=== PATIENT | male | born 1960 | race Caucasian/White ===

== ENCOUNTER → 2017-12-11 | Outpatient (CLI) | payer BC ==
[~2017-12-11] MED LIST: LISHYD1012 PO; MULVITMIND PO; PROM25 PO
== END | disposition home or self-care (01) ==
LOC: LAB EV 11:21
DX: R33.9 Retention of urine, unspecified (principal)
CPT/HCPCS: 87086

== ENCOUNTER → 2018-03-14 | Outpatient (CLI) | payer BC | LOC: LAB SHORT 14:30 → LAB 14:30 | DX: R82.90 Unspecified abnormal findings in urine (principal) | CPT/HCPCS: 87086 ==

== ENCOUNTER 2022-09-24 15:37 | Inpatient (IN) | payer BC ==
[~2022-09-24] VITALS: Ht 193 cm; Wt 103.1 kg
[2022-09-24 16:13] LABS: BASOPHILS ABSOLUTE AUTO 0.04 K/mm3 (0.00-0.23); BASOPHILS PERCENT AUTO 0 % (0-2); EOSINOPHILS PERCENT AUTO 0 % (0-6); Hematocrit 43.1 % (37.0-53.0); Hemoglobin 14.4 g/dL (13.5-17.5); IMMATURE GRAN ABSOLUTE AUTO 0.13 K/mm3 (0.00-0.10); IMMATURE GRAN PERCENT AUTO 1 % (0-1); LYMPHOCYTES PERCENT AUTO 6 % (21-46); MONOCYTES ABSOLUTE AUTO 1.76 K/mm3 (0.16-1.47); MONOCYTES PERCENT AUTO 8 % (4-13); Mean Corpuscular HGB 28.6 pg (26.0-34.0); Mean Corpuscular HGB Conc 33.4 g/dL (31.5-36.5); Mean Corpuscular Volume 86 fL (80-100); Mean Platelet Volume 9.7 fL (9.1-12.4); NEUTROPHILS ABSOLUTE AUTO 19.69 K/mm3 (1.96-9.15); NEUTROPHILS PERCENT AUTO 86 % (41-73); Platelet Count 371 K/mm3 (150-400); RDW Coefficient Variation 12.9 % (11.7-14.2); RDW Standard Deviation 40.6 fL (35.1-46.3); Red Blood Cell Count 5.03 M/mm3 (4.30-5.90); White Blood Cell Count 23.02 K/mm3 (4.00-11.30)
[2022-09-24 16:40] LABS: Albumin, Blood 3.1 g/dL (3.4-5.0); Albumin/Globulin Ratio 0.6 (0.8-1.8); Bun/Creatinine Ratio 19.8 (12.0-20.0); Calcium, Blood 8.8 mg/dL (8.5-10.1); Creatinine, Blood 1.21 mg/dL (0.60-1.20); Globulin, Blood 4.9 g/dL (2.2-4.0); Potassium, Blood 3.8 mmol/L (3.5-5.5)
[2022-09-24] MEDS ORDERED: ATOR10 PO (19:35)
[2022-09-24] MEDS ORDERED: LOSA50 PO (19:36)
--- NOTE | 2022-09-25 04:52 | NUR ---
SUMMARY PT ARRIVED TO FLOOR IN NO DISTRESS. PT HAS BEEN VOIDING AND HAVING PERIODS OF DIARRHEA. PT DENIES ABD PAIN OR N/V. PT HAS SLEPT COMFORTABLY FOR THE SHIFT. CALL LIGHT IN REACH.
[2022-09-25 04:57] LABS: BASOPHILS ABSOLUTE AUTO 0.04 K/mm3 (0.00-0.23); BASOPHILS PERCENT AUTO 0 % (0-2); EOSINOPHILS ABSOLUTE AUTO 0.04 K/mm3 (0.00-0.68); EOSINOPHILS PERCENT AUTO 0 % (0-6); Hematocrit 36.1 % (37.0-53.0); IMMATURE GRAN ABSOLUTE AUTO 0.09 K/mm3 (0.00-0.10); IMMATURE GRAN PERCENT AUTO 1 % (0-1); LYMPHOCYTES ABSOLUTE AUTO 0.87 K/mm3 (0.84-5.20); LYMPHOCYTES PERCENT AUTO 5 % (21-46); MONOCYTES ABSOLUTE AUTO 1.53 K/mm3 (0.16-1.47); MONOCYTES PERCENT AUTO 9 % (4-13); Mean Corpuscular HGB 28.3 pg (26.0-34.0); Mean Corpuscular HGB Conc 33.2 g/dL (31.5-36.5); Mean Corpuscular Volume 85 fL (80-100); Mean Platelet Volume 9.8 fL (9.1-12.4); NEUTROPHILS ABSOLUTE AUTO 14.75 K/mm3 (1.96-9.15); NEUTROPHILS PERCENT AUTO 85 % (41-73); Platelet Count 312 K/mm3 (150-400); RDW Coefficient Variation 12.9 % (11.7-14.2); RDW Standard Deviation 40.1 fL (35.1-46.3); Red Blood Cell Count 4.24 M/mm3 (4.30-5.90); White Blood Cell Count 17.32 K/mm3 (4.00-11.30)
[2022-09-25 05:22] LABS: Albumin, Blood 2.6 g/dL (3.4-5.0); Anion Gap 7 mmol/L (6-16); Blood Urea Nitrogen 24 mg/dL (8-24); Bun/Creatinine Ratio 19.8 (12.0-20.0); CO2, Blood 25 mmol/L (21-32); Calcium, Blood 8.3 mg/dL (8.5-10.1); Chloride, Blood 107 mmol/L (98-108); Creatinine, Blood 1.21 mg/dL (0.60-1.20); Glomerular Filtration Rate 67 (60-); Glucose, Blood 128 mg/dL (70-99); Magnesium, Blood 2.4 mg/dL (1.6-2.4); Phosphorus, Blood 3.1 mg/dL (2.5-4.9); Potassium, Blood 3.4 mmol/L (3.5-5.5); Sodium, Blood 139 mmol/L (136-145)
--- NOTE | 2022-09-25 08:23 | NUR ---
PATIENT TO DAY SURGERY WITH X2 DAY SURGERY RN'S.
--- NOTE | 2022-09-25 08:42 | NUR ---
PT BROUGHT FROM FLOOR TO DAY SURGERY FOR PROCEDURE. Patient confirms NPO status and agrees with scheduled surgery. Pre-Op teaching done. Pt verbalizes understanding. PT BELONGINGS IN SURGICAL ROOM FOR SAFEKEEPING.
--- NOTE | 2022-09-25 10:32 | NUR ---
09/25/22 1032 Sara Jose CONVERTED TO OPEN APPY AT 0718
--- NOTE | 2022-09-25 13:06 | NUR ---
PATIENT RETURNED TO ROOM FROM PACU VIA GURNEY, TRANSFERRED TO BED VIA SLIDER SHEET, PATIENT TOELRATED WELL. MINIMAL PAIN REPORTED TO BE TOLERABLE AT THIS TIME. SABINA DRESSING IN PALCE TO MIDLINE INCISION, SMALLA MOUNT OF DRAINAGE PRESENT, GOOD SUCTION REMAINS. FABIEN DRAIN TO RUQ W/ SS OUTPUT CURRENTLY. SIFUENTES IN PLACE DRAINING TO GRAVITY. VSS ON 2L O2 VIA NC. CALL LIGHT IN REACH.
--- NOTE | 2022-09-25 17:45 | NUR ---
SHIFT SUMMARY POD 0 OPEN APPENDECTOMY, MIDLINE INCISION WITH SABINA, DRY & INTACT. SMALL AMOUNT OF DRAINAGE. TOLERTING ICE CHIPS BUT PATIENT REMAINS NPO PER DR HART WITH ONLY ICE CHIPS. SIFUENTES IN PLACE, DRAINING CLEAR YELLOW URINE. MODERATE AMOUNT OF PAIN, MANAGED PER EMAR. CALLS APPROPRIATELY, IN REACH.
--- NOTE | 2022-09-26 05:18 | NUR ---
SHIFT SUMMARY: A&0X4. PODx1 OPEN APPY. MIDLINE SABINA REMAINS IN PLACE, NO CHANGES IN DRAINAGE SINCE BEGINNING OF SHIFT. FABIEN DRAIN REMAINS IN PLACE AND IS DRAINING SMALL AMOUNTS OF SEROSANGUINEOUS FLUID. REMAINS NPO OTHER THAN SMALL AMOUNTS OF ICE CHIPS. PAIN WELL MANAGED T/O THE SHIFT WITH IV MORPHINE. MEDICATED X1. PT RESTING WITH CALL LIGHT IN REACH. WILL GIVE REPORT TO DAY TIME RN.
--- NOTE | 2022-09-26 18:48 | NUR ---
SHIFT SUMMARY PT A&OX4, VSS/RA, NPO/ICE CHIPS, SIFUENTES PATENT & DRAINING YELLOW URINE, AMB SBA FWW IN HALLWAY/UP TO CHAIR T/O SHIFT. I.S. [facility]/ENC/DEMO. PAIN MANAGED WITH MORPHINE 2 MG, GIVEN 2X THIS SHIFT, PT REP PAIN 11/13 CURRENTLY. POD1, MIDLINE SABINA WNL, FABIEN 30 MLS SS OUT, DENIES FLATUS. IVF @ 100 MLS/HR. WILL REPORT TO ONCOMING NOC GHASSAN.
[2022-09-27 04:24] LABS: BASOPHILS ABSOLUTE AUTO 0.03 K/mm3 (0.00-0.23); BASOPHILS PERCENT AUTO 0 % (0-2); EOSINOPHILS PERCENT AUTO 0 % (0-6); Hematocrit 38.6 % (37.0-53.0); Hemoglobin 12.8 g/dL (13.5-17.5); IMMATURE GRAN ABSOLUTE AUTO 0.12 K/mm3 (0.00-0.10); IMMATURE GRAN PERCENT AUTO 1 % (0-1); LYMPHOCYTES ABSOLUTE AUTO 1.08 K/mm3 (0.84-5.20); LYMPHOCYTES PERCENT AUTO 7 % (21-46); MONOCYTES PERCENT AUTO 9 % (4-13); Mean Corpuscular HGB 28.2 pg (26.0-34.0); Mean Corpuscular HGB Conc 33.2 g/dL (31.5-36.5); Mean Corpuscular Volume 85 fL (80-100); Mean Platelet Volume 9.5 fL (9.1-12.4); NEUTROPHILS ABSOLUTE AUTO 13.47 K/mm3 (1.96-9.15); NEUTROPHILS PERCENT AUTO 83 % (41-73); Platelet Count 439 K/mm3 (150-400); RDW Coefficient Variation 13.2 % (11.7-14.2); RDW Standard Deviation 40.9 fL (35.1-46.3); Red Blood Cell Count 4.54 M/mm3 (4.30-5.90)
[2022-09-27 04:44] LABS: Albumin, Blood 2.3 g/dL (3.4-5.0); Albumin/Globulin Ratio 0.5 (0.8-1.8); Bilirubin, Total 0.5 mg/dL (0.1-1.0); Bun/Creatinine Ratio 24.9 (12.0-20.0); Calcium, Blood 8.4 mg/dL (8.5-10.1); Creatinine, Blood 0.97 mg/dL (0.60-1.20); Globulin, Blood 4.4 g/dL (2.2-4.0); Potassium, Blood 3.6 mmol/L (3.5-5.5); Total Protein, Blood 6.7 g/dL (6.4-8.2)
--- NOTE | 2022-09-27 07:33 | NUR ---
HAS RESTED OFF AND ON THIS SHIFT. AAO X4, BURNETTE, FOLLOWS ALL COMMANDS. FABIEN DRAIN IN PLACE. MIDLINE SABINA IN PLACE AND C/D/I. PAIN MANANGED, DENIES FURTHER NEEDS OR WANTS AT THIS TIME. IVF INFUSING PER MD ORDERS. SAFETY MEASURES IN PLACE. WILL GIVE HAND OFF TO ONCOMING SHIFT USING SBAR.
--- NOTE | 2022-09-27 16:59 | NUR ---
SHIFT SUMMARY POD 2 LAP CONVERTED TO OPEN APPY. PT HAS BEEN UP AND AMBULATING FREQUENTLY IN THE HALLS. NO WEAKNESS NOTED WITH AMBULATION, HE HAS BEEN PASSING FLATUS T/O THE SHIFT, TWO SMALL LOOSE BOWEL MOVEMENTS. CONTINUES TO DENY PAIN. HE HAS HAD INTERMITTENT HICCUPS AND BELCHING. ADVANCED TO CLEAR LIQUID BUT IS REQUESTING TO MAINTAIN ICE CHIPS ONLY AT THIS TIME. PT HAS VOIDED MULTIPLE TIMES SINCE SIFUENTES REMOVED, POST VOID RESIDUAL OF 99 WITH BLADDER SCAN.
--- NOTE | 2022-09-27 21:49 | NUR ---
CARE ASSUMPTION: PATIENT IN RECLINER, DENIES N/V/D/SOB OR CHEST PAIN. ENDORSES GAS AND HICCUPS. FLUIDS RUNNING PER EMAR. PATIENT ADVANCED TO CLEAR DIET BUT ONLY REQUESTS ICE CHIPS. MEDICATED PER EMAR.
--- NOTE | 2022-09-28 06:18 | NUR ---
SHIFT SUMMARY: PATIENT DENIES SOB/PAIN/CHEST DISCOMFORT. FBAIEN DRAINING SEROUS FLUID. MEDICATED PER EMAR. DENIES NEEDS AND WAS AWAKE MAJORITY OF NIGHT STATING, "IT'S DIFFICULT TO SLEEP HERE." MEDICATED PER EMAR. PATIENT IN RECLINER WITH CALL LIGHT IN REACH. WILL CONTINUE TO MONITOR UNTIL REPORT TO DAY RN.
--- NOTE | 2022-09-28 07:31 | NUR ---
upon assessment this morning patient reports that he has been passing gas and continuing to void during night, he also reported that during his last void he was passing gas while peeing. this rn asked for clarification that gas was coming out of his penis which he confirmed. gave a clean urinal and asked patient to save his next void. notifed dr. artis, orders to continue with clear liquid diet and observe next void for feculant material in urine. pt denies any pain or discomfort with voiding.
--- NOTE | 2022-09-28 14:46 | NUR ---
PT WITH XL EMESIS BILE IN COLOR ACROSS FLOOR OF PT ROOM. PT REPORTS "FEELING BETTER" FOLLOWING THIS. PT SALINE LOCKED AND BLENDING KETTLE TENDER ASSISTING PT WITH SHOWER AT THIS TIME. PRIMARY RN NOTIFIED
--- NOTE | 2022-09-28 16:22 | NUR ---
SHIFT SUMMARY POD 3 LAP APPY CONVERTED TO OPEN PT REMAINS PASSING FLATUS, LARGE EMESIS THIS EVENING, PT REPORTS HE WAS ATTEMPTING TO SCRATCH THE ROOF OF HIS MOUTH AGAIN CAUSING THE EMESIS. HE DENIES DISCOMFORT SINCE EMESIS, HE REMAINS NPO. PPN INFUSING PER EMAR, PT EXCITED TO START. ABD REMAINS DISTENDED, DECREASED AFTER EMESIS. DRESSING REMAINS UNCHANGED.
[2022-09-28 20:11] LABS: Source, Urine Clean Catch
[2022-09-28 20:19] LABS: Bilirubin, Urine Neg (Neg); Blood, Urine Neg (Neg); Color, Urine Yellow (P-Yellow); Glucose Qualitative, Urine Neg (Neg); Ketones, Urine Neg (Neg); Leukocyte Esterase, Urine Neg (Neg); Nitrite, Urine Neg (Neg); Protein, Urine 2+ (Neg); Specific Gravity, Urine 1.015 (1.003-1.022); Urobilinogen, Urine NORM (Normal)
[2022-09-28 20:28] LABS: Appearance, Urine Clear (Clear)
[2022-09-28 20:32] LABS: Hyaline Casts 0-2 /lpf (0-2)
[2022-09-28 20:33] LABS: Uric Acid Crystals Mod /hpf
[2022-09-28 20:34] LABS: Amorphous Light (0-Heavy); Bacteria Mod /hpf; Red Blood Cells, Urine 0-2 /hpf (0-2); Squamous Epithelial Cells Rare /hpf (Few)
--- NOTE | 2022-09-29 05:35 | NUR ---
SHIFT SUMMARY A/O X4- IND IN THE ROOM. POD4- LAP TO OPEN APPY- MIDLINE SABINA INTACT, DRIED DRAINAGE UNCHANGED. FABIEN DRAIN TO RLQ- MINIMAL OUTPUT THROUGHOUT SHIFT. PPN RUNNING THROUGHOUT SHIFT- MAINTAINED AT 50ML PER HOUR DUE TO PT REPORTING NAUSEA AT HIGHER MLS PER HR. NAUSEA TREATED W/ IV ZOFRAN PER EMAR, NO EMESIS THROUGHOUT SHIFT. ABDOMEN MODERATELY DISTENDED. VOIDING WELL AND REMAINED NPO THROUGHOUT SHIFT. NO FURTHER REPORT OF PASSING FLATUS OR BOWEL MOVEMENTS THROUGHOUT SHIFT. NO REPORT OF PAIN. WILL CONTINUE TO MONITOR AND REPORT TO ONCOMING RN.
[2022-09-29 06:09] LABS: Hemoglobin 12.8 g/dL (13.5-17.5); Mean Corpuscular HGB 28.3 pg (26.0-34.0); Mean Corpuscular HGB Conc 32.8 g/dL (31.5-36.5); Mean Corpuscular Volume 86 fL (80-100); Mean Platelet Volume 9.3 fL (9.1-12.4); Platelet Count 518 K/mm3 (150-400); RDW Coefficient Variation 13.5 % (11.7-14.2); RDW Standard Deviation 42.9 fL (35.1-46.3); Red Blood Cell Count 4.53 M/mm3 (4.30-5.90); White Blood Cell Count 15.54 K/mm3 (4.00-11.30)
[2022-09-29 06:42] LABS: Magnesium, Blood 2.5 mg/dL (1.6-2.4)
[2022-09-29 07:02] LABS: Alanine Aminotransfer (ALT/SGP 46 U/L (12-78); Albumin, Blood 2.4 g/dL (3.4-5.0); Albumin/Globulin Ratio 0.6 (0.8-1.8); Alk Phos 65 U/L (50-136); Anion Gap 6 mmol/L (6-16); Aspartate Aminotrans (AST/SGOT 36 U/L (12-37); Bilirubin, Total 0.5 mg/dL (0.1-1.0); Blood Urea Nitrogen 25 mg/dL (8-24); Bun/Creatinine Ratio 27.8 (12.0-20.0); CO2, Blood 27 mmol/L (21-32); Calcium, Blood 8.2 mg/dL (8.5-10.1); Chloride, Blood 114 mmol/L (98-108); Glomerular Filtration Rate 95 (60-); Glucose, Blood 155 mg/dL (70-99); Phosphorus, Blood 4.2 mg/dL (2.5-4.9); Potassium, Blood 3.4 mmol/L (3.5-5.5); Sodium, Blood 147 mmol/L (136-145); Total Protein, Blood 6.4 g/dL (6.4-8.2); Triglycerides 133 mg/dL (30-160)
--- NOTE | 2022-09-29 19:12 | NUR ---
SHIFT SUMMARY WHILE PT HAS HAD LINGERING NAUSEA, REPORTS FEELING IMPROVED. HAS DECLINED TAKING ANY ANTIEMETICS. NO EMESIS. NPO EXCEPT SIPS OF WATER w/ MEDS. HAVING GREEN BM's. UP IN CHAIR & AMBULATES TO BATHROOM T/O SHIFT.
--- NOTE | 2022-09-30 04:34 | NUR ---
POD5 OPEN APPY. SABINA DRESSING REMAINS COMPRESSED, DRIED EXUDATE MARKED ON THE DRESSING. FABIEN IN RLQ, DRAINING SS FLUID. PT HAS REMAINED NPO T/O THE NIGHT, ON PPN @55/HR. PT HAD MULTIPLE BILLIOUS BM'S T/O THE NIGHT, VOIDING W/O DIFFICULTY . PT REPORTS NO N/V T/O THE NIGHT. VSS. PT REMAINED INDEPENDENT T/O THE NIGHT. SLEPT ON AND OFF. PLAN FOR PT TO POSSIBLY ADVANCE DIET TODAY, CONTINUE ABX, AND MONITOR BOWEL FUNCTION. THE PATIENT IS CURRENTLY RESTING IN RECLINER, IN NO DISTRESS, CALL LIGHT IN REACH.
[2022-09-30 04:45] LABS: Hematocrit 39.8 % (37.0-53.0); Hemoglobin 12.8 g/dL (13.5-17.5); Mean Corpuscular HGB 28.2 pg (26.0-34.0); Mean Corpuscular HGB Conc 32.2 g/dL (31.5-36.5); Mean Corpuscular Volume 88 fL (80-100); Mean Platelet Volume 9.4 fL (9.1-12.4); Platelet Count 503 K/mm3 (150-400); RDW Coefficient Variation 13.5 % (11.7-14.2); RDW Standard Deviation 43.2 fL (35.1-46.3); Red Blood Cell Count 4.54 M/mm3 (4.30-5.90); White Blood Cell Count 13.77 K/mm3 (4.00-11.30)
[2022-09-30 05:10] LABS: Albumin, Blood 2.4 g/dL (3.4-5.0); Albumin/Globulin Ratio 0.6 (0.8-1.8); Bilirubin, Total 0.5 mg/dL (0.1-1.0); Bun/Creatinine Ratio 24.3 (12.0-20.0); Calcium, Blood 8.3 mg/dL (8.5-10.1); Creatinine, Blood 0.95 mg/dL (0.60-1.20); Globulin, Blood 4.1 g/dL (2.2-4.0); Magnesium, Blood 2.8 mg/dL (1.6-2.4); Phosphorus, Blood 3.3 mg/dL (2.5-4.9); Potassium, Blood 3.8 mmol/L (3.5-5.5); Total Protein, Blood 6.5 g/dL (6.4-8.2)
--- NOTE | 2022-09-30 18:33 | NUR ---
SHIFT SUMMARY PT A&OX4, VSS/RA, NINOSKA PO FLD, VOIDING WELL, AMB IND IN ROOM/BRP/HALLWAY, UP TO CHAIR T/O DAY, I.S. & TCDB T/O SHIFT, DENIES PAIN. POD5, MIDLINE SABINA WNL, FABIEN 40 MLS SSD. WILL REPORT TO ONCOMING NOC RN.
--- NOTE | 2022-10-01 04:49 | NUR ---
SHIFT SUMMARY: A&0X4. PT IND IN ROOM, TO BR, AND TO WALK IN HALLWAY. C/O NO PAIN T/O THE SHIFT. MIDLINE SABINA REMAINS IN PLACE WITH OLD DRIED BLOOD. NO CHANGES OBSERVED. FABIEN PRODUCING SMALL AMOUNT OF SEROSAN DRAINAGE. TOLERATING FULL LIQUID DIET, DRINKING PO FLUIDS. C/O LOOSE BM DURING THE DAY. REPORTS PASSING GAS T/O THE NIGHT BUT NO BM AT THIS TIME. RECEIVING IV ABX. VSS. RESTING WITH CALL LIGHT IN REACH. WILL GIVE REPORT TO DAY TIME RN.
[2022-10-01 05:21] LABS: Hemoglobin 12.7 g/dL (13.5-17.5); Mean Corpuscular HGB 28.2 pg (26.0-34.0); Mean Corpuscular HGB Conc 32.6 g/dL (31.5-36.5); Mean Corpuscular Volume 87 fL (80-100); Mean Platelet Volume 9.4 fL (9.1-12.4); Platelet Count 493 K/mm3 (150-400); RDW Coefficient Variation 13.4 % (11.7-14.2); RDW Standard Deviation 42.4 fL (35.1-46.3); Red Blood Cell Count 4.51 M/mm3 (4.30-5.90); White Blood Cell Count 14.32 K/mm3 (4.00-11.30)
[2022-10-01 05:50] LABS: Albumin, Blood 2.4 g/dL (3.4-5.0); Albumin/Globulin Ratio 0.6 (0.8-1.8); Bilirubin, Total 0.7 mg/dL (0.1-1.0); Calcium, Blood 8.2 mg/dL (8.5-10.1); Globulin, Blood 3.8 g/dL (2.2-4.0); Magnesium, Blood 2.4 mg/dL (1.6-2.4); Phosphorus, Blood 2.9 mg/dL (2.5-4.9); Potassium, Blood 3.6 mmol/L (3.5-5.5); Total Protein, Blood 6.2 g/dL (6.4-8.2)
[2022-10-01] MEDS ORDERED: ACET500 PO (15:08)
[2022-10-01] MEDS ORDERED: AMOCLA875 PO (15:08)
[2022-10-01] MEDS ORDERED: PANT40 PO (15:10)
--- NOTE | 2022-10-01 15:46 | NUR ---
DISCHARGE SUMMARY PT A&OX4, VSS/RA, NINOSKA PO LOW FIBER DIET, VOIDING WELL/2 BMS TODAY, AMB INDEPENDENTLY IN ROOM/UP TO CHAIR, TYLENOL MANAGES PAIN, IVS DC'D. DC INS PROVIDED. PT REP UNDERSTANDING THOSE INSTRUCTIONS INCLUDING HOW TO EMPTY FABIEN DRAIN AND RECORD RESULTS TWICE DAILY AND TAKE RECORD TO FU SURGEON APPT 1 WK, FABIEN DRESSING CHANGE PRN, MEDIPORE OVER [place] DAILY DRESSING CHANGE, OK TO SHOWER, AUGMENTIN AND PROTONIX AT [facility]. LEFT FLOOR VIA WC TO GO HOME WITH MOM AND SISTER WITH ALL PERSONAL POSSESSIONS INCLUDING DC PACKET AND DRESSING CHANGES FOR 1 WK.
== END 2022-10-01 15:39 | disposition home or self-care (01) | DRG 853 ==
LOC: ER 15:37 → SURS 18:11
PROVIDERS: Internal Medicine; Physician Assistant; Student in an Organized Health Care Education/Training Program; Surgery; ADMIT Internal Medicine
PROC: 3E03329 Introduction of Other Anti-infective into Peripheral Vein, Percutaneous Approach (ICD-10-PCS; 2022-09-24)
PROC: 0WJG4ZZ Inspection of Peritoneal Cavity, Percutaneous Endoscopic Approach (ICD-10-PCS; 2022-09-25)
PROC: 0DNE0ZZ Release Large Intestine, Open Approach (ICD-10-PCS; 2022-09-25)
PROC: 0DNW0ZZ Release Peritoneum, Open Approach (ICD-10-PCS; 2022-09-25)
PROC: 0W9G00Z Drainage of Peritoneal Cavity with Drainage Device, Open Approach (ICD-10-PCS; 2022-09-25)
PROC: 0DTJ0ZZ Resection of Appendix, Open Approach (ICD-10-PCS; principal; 2022-09-25 09:30)
PROC: 0DNU0ZZ Release Omentum, Open Approach (ICD-10-PCS; 2022-09-25 09:30)
DX: A41.9 Sepsis, unspecified organism (principal); K35.33 Acute appendicitis with perforation, localized peritonitis, and gangrene, with abscess; E87.0 Hyperosmolality and hypernatremia; K66.0 Peritoneal adhesions (postprocedural) (postinfection); I10 Essential (primary) hypertension; E78.00 Pure hypercholesterolemia, unspecified; F17.210 Nicotine dependence, cigarettes, uncomplicated; E87.6 Hypokalemia; Z98.890 Other specified postprocedural states; Z79.02 Long term (current) use of antithrombotics/antiplatelets; Z79.899 Other long term (current) drug therapy; Z85.828 Personal history of other malignant neoplasm of skin; Z53.31 Laparoscopic surgical procedure converted to open procedure
CPT/HCPCS: 36415; 74177; 80053; 80069; 81001; 82947; 83605; 83690; 83735; 84100; 84478; 85025; 85027; 87086; 88304; 96365-59; 99285-25; A9270; C9113; J1100; J1650; J2270; J2405; J2543; J2704; J2795; J3010; J3411; J3480; J7030; J7120; Q9967

== ENCOUNTER 2023-04-08 11:39 | Day surgery (SDC) | payer OTHER ==
[~2023-04-08] VITALS: Ht 193 cm; Wt 105.7 kg
[~2023-04-08 11:39] MED LIST changes: +ACET500 PO; +AMOCLA875 PO; +ATOR10 PO; +LOSA50 PO; +PANT40 PO
[2023-04-08] MEDS ORDERED: Vitamin D1000 UNI1 (12:02)
[2023-04-08] MEDS ORDERED: MULVITA (12:02)
[2023-04-08] MEDS ORDERED: Acerola C500 MG (12:02)
[2023-04-08 15:01] VITALS: BP 123/91
== END 2023-04-08 14:45 | disposition home or self-care (01) ==
LOC: ORSCSDS 11:39
PROVIDERS: Surgery
PROC: 0DJD8ZZ Inspection of Lower Intestinal Tract, Via Natural or Artificial Opening Endoscopic (ICD-10-PCS; principal; 2023-04-08 13:00)
DX: R63.4 Abnormal weight loss (principal); R14.0 Abdominal distension (gaseous); K63.5 Polyp of colon; K59.39 Other megacolon; I10 Essential (primary) hypertension; E78.5 Hyperlipidemia, unspecified; Z79.899 Other long term (current) drug therapy
CPT/HCPCS: J2704; J7120

== ENCOUNTER → 2024-09-20 | Outpatient (CLI) | payer OTHER ==
[~2024-09-20] MED LIST changes: +Acerola C500 MG; +MULVITA; +Vitamin D1000 UNI1
[2024-09-20 17:20] LABS: BASOPHILS ABSOLUTE AUTO 0.05 K/mm3 (0.00-0.23); BASOPHILS PERCENT AUTO 1 % (0-2); EOSINOPHILS ABSOLUTE AUTO 0.05 K/mm3 (0.00-0.68); EOSINOPHILS PERCENT AUTO 1 % (0-6); Hematocrit 39.8 % (37.0-53.0); Hemoglobin 13.6 g/dL (13.5-17.5); IMMATURE GRAN ABSOLUTE AUTO 0.01 K/mm3 (0.00-0.10); IMMATURE GRAN PERCENT AUTO 0 % (0-1); LYMPHOCYTES ABSOLUTE AUTO 1.66 K/mm3 (0.84-5.20); LYMPHOCYTES PERCENT AUTO 28 % (21-46); MONOCYTES ABSOLUTE AUTO 0.56 K/mm3 (0.16-1.47); MONOCYTES PERCENT AUTO 10 % (4-13); Mean Corpuscular HGB 29.4 pg (26.0-34.0); Mean Corpuscular HGB Conc 34.2 g/dL (31.5-36.5); Mean Corpuscular Volume 86 fL (80-100); Mean Platelet Volume 11.2 fL (9.1-12.4); NEUTROPHILS ABSOLUTE AUTO 3.52 K/mm3 (1.96-9.15); NEUTROPHILS PERCENT AUTO 60 % (41-73); Platelet Count 236 K/mm3 (150-400); RDW Coefficient Variation 12.4 % (11.7-14.2); RDW Standard Deviation 38.8 fL (35.1-46.3); Red Blood Cell Count 4.63 M/mm3 (4.30-5.90); White Blood Cell Count 5.85 K/mm3 (4.00-11.30)
[2024-09-20 20:17] LABS: Alanine Aminotransfer (ALT/SGP 24 U/L (12-78); Albumin, Blood 3.9 g/dL (3.4-5.0); Albumin/Globulin Ratio 1.3 (0.8-1.8); Alk Phos 45 U/L (50-136); Anion Gap 9 mmol/L (3-11); Aspartate Aminotrans (AST/SGOT 14 U/L (12-37); Bilirubin, Total 0.5 mg/dL (0.1-1.0); Blood Urea Nitrogen 19 mg/dL (8-24); Bun/Creatinine Ratio 22.3 (12.0-20.0); CHOL/HDL RATIO 3.3; CO2, Blood 26 mmol/L (21-32); Calcium, Blood 8.7 mg/dL (8.5-10.1); Chloride, Blood 109 mmol/L (98-108); Cholesterol 137 mg/dL (50-200); Creatinine, Blood 0.85 mg/dL (0.60-1.20); Globulin, Blood 2.9 g/dL (2.2-4.0); Glomerular Filtration Rate 96 (60-); Glucose, Blood 101 mg/dL (70-99); HDL Cholesterol 42 mg/dL (>39); LDL/HDL RATIO 1.9; Low Density Lipoprotein Chol 79 mg/dL (0-110); Sodium, Blood 140 mmol/L (136-145); Total Protein, Blood 6.8 g/dL (6.4-8.2); Triglycerides 78 mg/dL (30-160); Very Low Density Lipoprot Chol 15 mg/dL (6-32)
[2024-09-25 08:54] LABS: Percent Saturation 21.7 % (20.0-50.0)
== END | disposition home or self-care (01) ==
LOC: LAB 15:47 → LAB SHORT 15:47
PROVIDERS: Family Medicine
DX: G62.9 Polyneuropathy, unspecified (principal); I45.9 Conduction disorder, unspecified; R20.2 Paresthesia of skin; Z79.899 Other long term (current) drug therapy
CPT/HCPCS: 80053; 80061; 82306; 82607; 82728; 82746; 83036; 83540; 83550; 84443; 85025